=== PATIENT | male | born 1960 | race Caucasian/White ===

== ENCOUNTER 2020-07-12 11:04 | Outpatient (REF) | payer OTHER, SELFPAY | END 2020-07-12 11:05 | disposition home or self-care (01) | LOC: HO.WFDLDS 11:04 | PROVIDERS: PCP Nurse Practitioner Family; Visit Provider Internal Medicine | DX: Z20.828 Contact with and (suspected) exposure to other viral communicable diseases (principal) | CPT/HCPCS: C9803; U0003 ==

== ENCOUNTER 2022-05-01 11:53 | Outpatient (REF) | payer OTHER, SELFPAY ==
[2022-05-01 12:57] LABS: Influenza A PCR NEGATIVE (Negative); Influenza B PCR NEGATIVE (Negative); Resp Syncy Virus RNA Qual PCR NEGATIVE (Negative); SARS COV2 PCR INHOUSE POSITIVE (Negative)
== END 2022-05-01 11:54 | disposition home or self-care (01) ==
LOC: HO.LNP 11:53
PROVIDERS: Visit Provider Nurse Practitioner Family
DX: Z20.822 Contact with and (suspected) exposure to COVID-19 (principal)
CPT/HCPCS: 0241U